=== PATIENT | male | born 1950 | race Caucasian/White ===

== ENCOUNTER 2018-07-14 17:28 | Emergency (ER) | payer MEDICARE, OTHER ==
[~2018-07-14] VITALS: Ht 175.3 cm; Wt 65.8 kg
[2018-07-14] MEDS ORDERED: SODIUM CHLORIDE 0.9% 1,000 ML IV ONE ×2 (19:00→23:45)
[2018-07-14 20:45] LABS: INR 0.98 (0.9-1.15); Partial Thromboplastin Time 26.8 sec (23.78-33.04); Prothrombin Time 10.5 sec (9.27-12.13)
[2018-07-14] MEDS ORDERED: MORPHINE SULFATE 4 MG/ML SYR/VIAL IV ONE (20:45)
[2018-07-14] MEDS ORDERED: ONDANSETRON HCL 4 MG/2 ML VIAL IV ONE (20:45)
[2018-07-14 20:54] LABS: Alanine Aminotransferase 73 U/L (16-61); Albumin 3.1 g/dL (3.4-5.0); Alkaline Phosphatase 145 U/L (45-117); Anion Gap 14 (5-15); Aspartate Aminotransferase 97 U/L (15-37); Bilirubin, Total 1.4 mg/dL (0.2-1.0); Blood Urea Nitrogen 4 mg/dL (7-18); Calcium 7.5 mg/dL (8.5-10.1); Carbon Dioxide 17 mmol/L (21-32); Chloride 88 mmol/L (98-107); GFR African American 277 mL/min; GFR Non-African American 229 mL/min; Glucose 70 mg/dL (74-106); Magnesium 2.2 mg/dL (1.6-2.6); Total Protein 6.1 g/dL (6.4-8.2)
[2018-07-14 21:06] LABS: Potassium 2.8 mmol/L (3.5-5.1); Sodium 119 mmol/L (136-145)
[2018-07-14 21:23] LABS: Basophils # (auto) 0 uL; Eosinophils # (auto) 0 uL; Eosinophils % (auto) 0.2 % (0.0-7.0); Lymphocytes # (auto) 0.6 uL; Mean Corpuscular Hgb Conc. 35.3 g/dL (32.0-36.0); Mean Corpuscular Volume 99.5 fL (80.0-100.0); Monocytes # (auto) 0.5 uL; Neutrophils # (auto) 3.6 uL; Nucleated Red Blood Cells % 0.1 %; White Blood Cell 4.7 10^3/uL (4.4-10.8)
[2018-07-14 21:25] LABS: Basophils % (auto) 0.7 % (0.0-2.0); Hematocrit 42.1 % (41.0-53.0); Hemoglobin 14.9 g/dL (13.5-17.5); Lymphocytes % (auto) 12.8 % (10.0-50.0); Mean Corpuscular Hemoglobin 35.1 pg (28.0-32.0); Monocytes % (auto) 10.9 % (0.0-12.0); Neutrophils % (auto) 75.4 % (37.0-80.0); Platelet Count (auto) 127 10^3/uL (140-450); Red Blood Cells 4.23 10^6/uL (4.5-5.90); Red Cell Distribution Width 12.6 % (11.8-14.3)
[2018-07-14] MEDS ORDERED: POTASSIUM CHL 20 Meq TABLET PO ONE (21:45)
[2018-07-14] MEDS ORDERED: CALCIUM GLUC 4.65meq/50ml D5AE 50 ML IV ONE (21:45)
[2018-07-14] MEDS ORDERED: SODIUM CHL 3% 500 ML IV SCH (21:45)
[2018-07-14] MEDS ORDERED: TEMAZEPAM 15 MG CAP PO PRN (21:45)
[2018-07-14] MEDS ORDERED: MORPHINE SULFATE 4 MG/ML SYR/VIAL IV PRN (21:45)
[2018-07-14] MEDS ORDERED: NITROGLYCERIN 0.4 MG SL TAB SL PRN (21:45)
[2018-07-14] MEDS ORDERED: ONDANSETRON HCL 4 MG/2 ML VIAL IV PRN (21:45)
[2018-07-14] MEDS ORDERED: FAMOTIDINE 20 MG TAB PO SCH (22:00)
[2018-07-14 22:10] LABS: Urine Bacteria FEW /hpf (None Seen); Urine Blood Negative /uL (Negative); Urine Specific Gravity 1.004 (1.001-1.035); Urine WBC <1 /hpf (0 - 3)
[2018-07-14] MEDS ORDERED: chlordiazePOXIDE HCL 25 MG CAP PO PRN (22:15)
[2018-07-14 22:16] LABS: Amphetamine Screen, Urine NEGATIVE (NEGATIVE); Barbiturate Scree,Urine NEGATIVE (NEGATIVE); Benzodiazephine Screen, Urine NEGATIVE (NEGATIVE); Cannabinoid Screen, Urine NEGATIVE (NEGATIVE); Cocaine Screen, Urine NEGATIVE (NEGATIVE); Opiate Scree,Urine NEGATIVE (NEGATIVE); Phencyclidine Screen, Urine NEGATIVE (NEGATIVE)
[2018-07-14] MEDS ORDERED: NICOTINE 14 MG/24HR TOPICAL PATCH TD ONE (22:30)
[2018-07-14] MEDS ORDERED: FOLIC ACID 1 MG in D5W 5% 50 ML INJ ONE (23:45)
[2018-07-14] MEDS ORDERED: PYRIDOXINE HCL 50 MG TAB PO ONE (23:45)
[2018-07-15 00:56] LABS: BUN/Creatinine Ratio 11.4; Calcium 7.3 mg/dL (8.5-10.1); Potassium 3.1 mmol/L (3.5-5.1)
[2018-07-15] MEDS ORDERED: POTASSIUM CHL 20 Meq TABLET PO ONE (03:30)
[2018-07-15] MEDS ORDERED: FOLIC ACID 1 MG TAB PO ONE (03:30)
[2018-07-15] MEDS ORDERED: LORazepam 2MG/ML-1ML VIAL IV ONE (03:30)
[2018-07-15] MEDS ORDERED: SODIUM CHLORIDE 0.9% 1,000 ML IV ONE (03:30)
[2018-07-15] MEDS ORDERED: HYDROcodone-ACET 5/325MG TAB PO ONE (03:30)
[2018-07-15] MEDS ORDERED: SODIUM CHLORIDE 0.9% 500 ML IV ONE (06:45)
[2018-07-15 07:28] LABS: Albumin 2.7 g/dL (3.4-5.0); Calcium 7.5 mg/dL (8.5-10.1); Potassium 3.3 mmol/L (3.5-5.1)
[2018-07-15 07:29] VITALS: BP 141/69
[2018-07-15 07:30] LABS: BUN/Creatinine Ratio 15.8
[2018-07-15 07:44] LABS: Bilirubin, Total 1.3 mg/dL (0.2-1.0); Total Protein 5.6 g/dL (6.4-8.2)
== END 2018-07-15 08:56 | disposition home or self-care (01) ==
LOC: ER 17:36 → TELE 17:37 → UNDOADMIN 17:37 → ER 07-15 06:48
DX: R53.1 Weakness (principal); R55 Syncope and collapse; F17.210 Nicotine dependence, cigarettes, uncomplicated; R42 Dizziness and giddiness
CPT/HCPCS: 36415; 70450; 71045; 80048; 80053; 80307; 80320; 81001; 82088; 83735; 84484; 85025; 85610; 85730; 94761; 96361; 96374; 96375; 99285; J0610; J2060; J2270; J2405; J7030; J7040; J7060